=== PATIENT | female | born 1995 | race Caucasian/White ===

== ENCOUNTER 2016-05-19 03:11 | Emergency (ER) | payer MEDICAID ==
[~2016-05-19] VITALS: Ht 162.6 cm; Wt 104.3 kg
[2016-05-19 03:26] VITALS: BP_SYST 150
[2016-05-19] MEDS: PROMETHAZINE 6.25 MG/ CODEINE 10 MG/ 5 ML PO ONE (04:56)
[2016-05-19 05:02] VITALS: BP_SYST 150
== END 2016-05-19 05:04 | disposition home or self-care (01) ==
LOC: SED 03:11
DX: R04.2 Hemoptysis (principal)
CPT/HCPCS: 71020-TC; 99284

== ENCOUNTER 2017-04-15 15:34 | Emergency (ER) | payer MEDICAID ==
[~2017-04-15] VITALS: Ht 154.9 cm; Wt 122.5 kg
[2017-04-15 15:41] VITALS: BP_SYST 113
--- NOTE | 2017-04-15 15:51 | NUR ---
Patient to ER bed 4 to gown for evaluation. Side rails up. Report given to Jose Carlos.
--- NOTE | 2017-04-15 16:10 | NUR ---
ER Dr. Segura at bedside examining patient.
[2017-04-15] MEDS ORDERED: NACL 0.9% 1,000 ML IV ONE (16:12)
[2017-04-15] MEDS ORDERED: ONDANSETRON HCL 4 MG/2 ML VIAL IVP ONE (16:15)
--- NOTE | 2017-04-15 16:15 | NUR ---
Pt AAOX4, able to verbalize needs. Pt states she has "flu-like symptoms" that started a day ago and states she feels nauseous and weak. Pt states no pain at this time. No other complaints or injuries per pt or noted.
[2017-04-15] MEDS ORDERED: SULFAMETHOXAZOLE/TRIMETHOPR DS 1 TABLET ONE (16:19)
[2017-04-15 16:35] LABS: BASOPHILS # (AUTO) 0.1 K/uL (0.0-0.2); BASOPHILS % (AUTO) 2.1 % (0.0-2.0); EOSINOPHILS % (AUTO) 0.4 % (0.0-4.0); HEMATOCRIT 39.1 % (36-48); HEMOGLOBIN 12.9 g/dL (12.0-16.0); LYMPHOCYTES # (AUTO) 0.7 K/uL (1.0-5.5); LYMPHOCYTES % (AUTO) 15.1 % (20.5-51.5); MEAN CORPUSCULAR HEMOGLOBIN 28 pg (27-31); MEAN CORPUSCULAR HGB CONC 33 % (32-36); MEAN CORPUSCULAR VOLUME 86 fL (79.0-98.0); MONOCYTES # (AUTO) 0.5 K/uL (0.0-1.0); MONOCYTES % (AUTO) 10.2 % (1.7-9.3); NEUTROPHILS # (AUTO) 3.3 K/uL (1.8-7.7); NEUTROPHILS % (AUTO) 72.2 % (40.0-70.0); PLATELET COUNT (AUTO) 190 K/uL (130-430); RED BLOOD CELL COUNT(AUTO) 4.55 MIL/uL (4.2-6.2); RED CELL DISTRIBUTION WIDTH 12.3 % (9.0-15.0); WHITE BLOOD COUNT (AUTO) 4.6 K/uL (4.8-10.8)
--- NOTE | 2017-04-15 16:40 | NUR ---
Pt states no nausea at this time and "feels less weak" post zofran administration and with NS bolus. No adverse reactions noted. Pt tolerating well.
[2017-04-15 16:57] LABS: CALCIUM 9.3 mg/dL (8.4-11.0); CREATININE 0.89 mg/dL (0.55-1.30)
[2017-04-15 17:01] LABS: ALBUMIN 4.1 g/dL (3.4-4.8); TOTAL BILIRUBIN 0.3 mg/dL (0.0-1.0)
--- NOTE | 2017-04-15 18:30 | NUR ---
Pt states "I'm feeling better," and states she can ambulate to bathroom to provide urine sample since she was unable to void an adequate amount earlier.
[2017-04-15 19:04] LABS: CLARITY/URINE SLIGHTLY HAZY (CLEAR); COLOR,URINE YELLOW (YELLOW); PROTEIN URINE NEGATIVE (NEGATIVE)
[2017-04-15 19:05] LABS: BILIRUBIN,URINE NEGATIVE (NEGATIVE); BLOOD, URINE NEGATIVE (NEGATIVE); GLUCOSE,URINE NEGATIVE (NEGATIVE); KETONES,URINE TRACE (NEGATIVE); LEUKOCYTE ESTERASE ,URINE NEGATIVE (NEGATIVE); NITRITE, URINE NEGATIVE (NEGATIVE); UROBILINOGEN,URINE 0.2 (0.2-1.0)
--- NOTE | 2017-04-15 19:05 | NUR ---
Endorsed plan of care to Azalea JONES.
--- NOTE | 2017-04-15 19:30 | NUR ---
Pt alert and awake. No signs of SOB or acute distress noted. Will continue to monitor.
[2017-04-15 20:00] VITALS: BP_SYST 120
--- NOTE | 2017-04-15 20:00 | NUR ---
Patient given written and verbal discharge instructions and verbalizes understanding. ER MD Segura discussed with patient the results and treatment provided. Patient in stable condition. ID arm band removed. IV catheter removed intact and dressing applied, no active bleeding. Rx of zofran given. Patient educated on pain management and to follow up with PMD. Pain Scale 0/10. Opportunity for questions provided and answered.
== END 2017-04-15 20:00 | disposition home or self-care (01) ==
LOC: SED 15:34
DX: R11.2 Nausea with vomiting, unspecified (principal); R10.13 Epigastric pain
CPT/HCPCS: 36415; 80053; 81003; 81025; 83690; 84703; 85025; 86710; 96361; 96374; 99284; J2405; J7030

== ENCOUNTER 2022-02-15 18:07 | Emergency (ER) | payer MEDICAID, OTHER ==
[~2022-02-15] VITALS: Ht 165.1 cm; Wt 117.9 kg
[~2022-02-15 18:07] MED LIST: IBUP-1969 PO; PHEN-707 PO
[2022-02-15 19:05] VITALS: BP_SYST 121
--- NOTE | 2022-02-15 19:44 | NUR ---
ER in waiting room examining patient.
--- NOTE | 2022-02-15 22:54 | NUR ---
COVID/FLU SWAB DROPPED OFF AT LAB
--- NOTE | 2022-02-16 00:10 | NUR ---
Patient ambulatory to the hallway 1
--- NOTE | 2022-02-16 00:11 | NUR ---
ER at bedside re-examining patient.
[2022-02-16] MEDS ORDERED: PRED20TA PO (00:15)
[2022-02-16] MEDS ORDERED: PSEU120T57 PO (00:15)
[2022-02-16 00:25] VITALS: BP_SYST 124
--- NOTE | 2022-02-16 00:25 | NUR ---
Patient given written and verbal discharge instructions and verbalizes understanding. ER MD discussed with patient the results and care provided. Patient in stable condition. Rx of Prednisone and Sudafed sent to pharmacy of choice by ER MD. Patient educated on pain management and to follow up with PMD. Opportunity for questions provided and answered.
== END 2022-02-16 00:25 | disposition home or self-care (01) ==
LOC: SED 18:07
DX: J06.9 Acute upper respiratory infection, unspecified (principal); R05.9 Cough, unspecified; R09.81 Nasal congestion; Z79.899 Other long term (current) drug therapy; Z20.822 Contact with and (suspected) exposure to COVID-19
CPT/HCPCS: 36415; 71045; 81025; 99284